=== PATIENT | female | born 1955 | race Caucasian/White ===

== ENCOUNTER 2017-08-29 13:32 | Emergency (ER) | payer SELFPAY ==
[~2017-08-29] VITALS: Ht 152.4 cm; Wt 67.1 kg
[2017-08-29 20:07] LABS: BASOPHILS # (AUTO) 0.1 (0.0-0.1); BASOPHILS % 0.3 % (0.0-1.0); EOSINOPHILS # (AUTO) 0.1 (0.0-0.4); EOSINOPHILS % 0.8 % (0.0-6.0); HEMATOCRIT 52.8 % (34.2-44.1); HEMOGLOBIN 18.3 g/dL (12.0-16.0); LYMPHOCYTES # (AUTO) 4.9 (1.0-3.2); LYMPHOCYTES % 29.3 % (18.0-39.1); MEAN CORPUSCULAR HEMOGLOBIN 29.7 pg (28-32); MEAN CORPUSCULAR HGB CONC 34.7 g/dL (31-35); MEAN CORPUSCULAR VOLUME 85.6 fL (81-99); MONOCYTES # (AUTO) 1.1 (0.2-0.8); MONOCYTES % 6.3 % (4.4-11.3); NEUTROPHILS # (AUTO) 10.5 (2.1-6.9); NEUTROPHILS % 62.8 % (38.7-80.0); PLATELET COUNT 331 x10e3/uL (140-360); RED BLOOD COUNT 6.17 x10e6/uL (3.6-5.1); RED CELL DISTRIBUTION WIDTH 13.6 % (11.7-14.4)
[2017-08-29 20:29] LABS: ALBUMIN 4.2 g/dL (3.5-5.0); ANION GAP 17.4 mmol/L (8-16); CALCIUM 10.1 mg/dL (8.4-10.2); CREATININE, SERUM 1.08 mg/dL (0.57-1.11); POTASSIUM 3.4 mmol/L (3.5-5.1)
[2017-08-29] MEDS ORDERED: SODIUM CHLORIDE 0.9% 1000ML 1,000 ML IV SCH (21:30)
[2017-08-29] MEDS ORDERED: COMBIVENT RESPIM4 GM IH (21:48)
[2017-08-29] MEDS ORDERED: LYRICA75 MG PO (21:48)
[2017-08-29] MEDS ORDERED: SPIRIVA18 MCG INH (21:48)
[2017-08-29] MEDS ORDERED: QUESTRAN PACKET4 GM PO (21:48)
[2017-08-29] MEDS ORDERED: PROVENTIL HFA6.7 GM INH (21:48)
[2017-08-29] MEDS ORDERED: ATORVASTATIN CA20 MG PO (21:48)
[2017-08-29] MEDS ORDERED: MONTELUKAST SOD10 MG PO (21:48)
[2017-08-29] MEDS ORDERED: BUPROPION XL150 MG PO (21:48)
[2017-08-29] MEDS ORDERED: CLONAZEPAM0.5 MG PO (21:48)
[2017-08-29] MEDS ORDERED: EPINEPHRIN0.3 MG/0.3 (21:48)
[2017-08-29] MEDS ORDERED: CETIRIZINE HCL10 MG PO (21:48)
[2017-08-29] MEDS ORDERED: BENZONATATE100 MG PO (21:48)
[2017-08-29] MEDS ORDERED: HYDROCHLOROTHIA25 MG PO (21:48)
[2017-08-29] MEDS ORDERED: OMEPRAZOLE40 MG PO (21:48)
[2017-08-29 21:51] LABS: BILIRUBIN,URINE 1+ (NEGATIVE); KETONES,URINE NEGATIVE (NEGATIVE); LEUKOCYTE ESTERASE ,URINE NEGATIVE (NEGATIVE); PROTEIN,URINE DIPSTICK NEGATIVE (NEGATIVE); URINE UROBILINOGEN 0.2 mg/dL (0.2 - 1)
[2017-08-29 21:56] LABS: CLARITY,URINE SL CLOUDY (CLEAR); COLOR,URINE YELLOW (YELLOW); NITRITE,URINE POSITIVE (NEGATIVE)
[2017-08-29 22:08] LABS: BACTERIA,URINE MANY /HPF; EPITHELIAL CELLS,URINE FEW /LPF; RBC,URINE 0-5 /HPF (0-5)
[2017-08-29] MEDS ORDERED: IOPAMIDOL 370 MG/ML 200 ML INFUS..BTL INJ ONE (22:31)
[2017-08-29] MEDS ORDERED: SODIUM CHLORIDE 0.9% 100 ML 0 ML ONE (22:31)
--- NOTE | 2017-08-29 22:38 | Diagnostic Imaging Report ---
EXAM: CT Abdomen and Pelvis WITH contrast INDICATION: Abdominal pain, nausea, diarrhea COMPARISON: None. TECHNIQUE: Abdomen and pelvis were scanned utilizing a multidetector helical scanner from the lung base to the pubic symphysis after administration of IV contrast. Coronal and sagittal reformations were obtained. Routine protocol was performed. Scan was performed when during portal venous phase. IV CONTRAST: 100 mL of Isovue-370 ORAL CONTRAST: Water RADIATION DOSE: Total DLP: 370.4 mGy*cm Estimated effective dose: (DLP x 0.015 x size factor) mSv COMPLICATIONS: None FINDINGS: LINES and TUBES: None. LOWER THORAX: Unremarkable HEPATOBILIARY: The liver is diffuse hypodense compared to the spleen, consistent with diffuse hepatic diffuse hepatic steatosis. No focal hepatic lesions. No biliary ductal dilation. GALLBLADDER: There are cholecystectomy clips. SPLEEN: No splenomegaly. PANCREAS: No focal masses or ductal dilatation. ADRENALS: No adrenal nodules KIDNEYS/URETERS: Kidneys enhance symmetrically. No hydronephrosis. 4.7 cm simple cyst in the upper pole of the left kidney and 2.6 cm simple cyst in the inferior pole of the left kidney. No stones. GI TRACT: No abnormal distention, wall thickening, or evidence of bowel obstruction. There are diverticula within the colon without evidence of diverticulitis. Appendix is not clearly identified. There is however no fat stranding or adenopathy in the right lower quadrant to suggest appendicitis. PELVIC ORGANS/BLADDER: There are postop changes of hysterectomy and bilateral oophorectomies. LYMPH NODES: No lymphadenopathy. VESSELS: There is moderate atherosclerotic disease in the aorta and major arterial branches. PERITONEUM / RETROPERITONEUM: No free air or fluid. BONES: There are degenerative changes in the lumbar spine. SOFT TISSUES: Unremarkable. IMPRESSION: 1. No evidence of acute intra-abdominal or pelvic abnormality. 2. Left renal cysts. 3. Diffuse hepatic steatosis. 4. 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 Signed by: Dr. Francis Elizabeth M.D. on 08/29/2017 10:35 PM
[2017-08-30 00:44] VITALS: BP 145/65
== END 2017-08-30 00:45 | disposition home or self-care (01) ==
LOC: ER 13:32
DX: R10.84 Generalized abdominal pain (principal); R19.7 Diarrhea, unspecified; N30.90 Cystitis, unspecified without hematuria; I10 Essential (primary) hypertension; K21.9 Gastro-esophageal reflux disease without esophagitis; K58.9 Irritable bowel syndrome, unspecified
CPT/HCPCS: 36415; 74177; 80053; 81001; 85025; 87086; 87186; 99284; J7030; Q9967